=== PATIENT | male | born 1985 ===

== ENCOUNTER 2021-01-03 02:44 | Emergency (ER) | payer BC, OTHER ==
[~2021-01-03] VITALS: Ht 177.8 cm; Wt 79.5 kg
--- NOTE | 2021-01-03 03:05 | NUR ---
PT. C/O RIGHT UPPER DENTAL PAIN STARTING YESTERDAY. DENISSE BORJA IN TO ROCK PT. AND DISCUSS POC.
[2021-01-03] MEDS ORDERED: IBUPROFEN 800 MG TABLET ONE (03:08)
[2021-01-03] MEDS ORDERED: IBUPROFEN 800 MG TABLET PO ONE (03:30)
== END 2021-01-03 03:26 | disposition home or self-care (01) ==
LOC: ED 03:08 → MERGE 03:08 → ED 03:20
DX: K02.9 Dental caries, unspecified (principal); K08.89 Other specified disorders of teeth and supporting structures; Z72.9 Problem related to lifestyle, unspecified
CPT/HCPCS: 99283